=== PATIENT | male | born 1970 | race Caucasian/White ===

== ENCOUNTER 2018-05-21 00:18 | Emergency (ER) | payer SELFPAY ==
[~2018-05-21] VITALS: Ht 182.9 cm; Wt 97.7 kg
[2018-05-21 00:43] LABS: BASOPHILS # (AUTO) 0.04 x10^3/uL (0-0.1); BASOPHILS % (AUTO) 1 % (0-1); EOSINOPHILS # (AUTO) 0.41 x10^3/uL (0-0.4); EOSINOPHILS % (AUTO) 6 % (1-7); LYMPHOCYTES # (AUTO) 2.38 x10^3/uL (1-3.4); LYMPHOCYTES % (AUTO) 33 % (22-44); MD NO; MEAN CORPUSCULAR HEMOGLOBIN 34.2 pg (27.5-34.5); MEAN CORPUSCULAR HGB CONC 34.9 g/dL (33.2-36.2); MEAN CORPUSCULAR VOLUME 98.1 fL (81-97); MEAN PLATELET VOLUME 7.2 fL (7.4-10.4); MONOCYTES # (AUTO) 0.68 x10^3/uL (0.2-0.8); MONOCYTES % (AUTO) 9 % (2-9); NEUTROPHILS # (AUTO) 3.64 x10^3/uL (1.8-6.8); NEUTROPHILS % (AUTO) 51 % (42-75); PLATELET COUNT 244 x10^3/uL (130-400); RED BLOOD COUNT 4.39 x10^6/uL (4.38-5.82); RED CELL DISTRIBUTION WIDTH 13.7 % (9.4-14.8)
[2018-05-21 00:50] LABS: ALBUMIN 3.6 g/dL (3.4-5.0); ANION GAP 13 mmol/L (5-15); CALCIUM 8.1 mg/dL (8.5-10.1); CHLORIDE 108 mmol/L (98-107); CREATININE 0.94 mg/dL (0.7-1.3)
[2018-05-21 01:16] VITALS: BP 112/56
== END 2018-05-21 01:32 | disposition home or self-care (01) ==
LOC: ED 01:20
DX: F10.229 Alcohol dependence with intoxication, unspecified (principal); R20.2 Paresthesia of skin; Y90.9 Presence of alcohol in blood, level not specified
CPT/HCPCS: 36415; 70450; 80048; 80307; 82040; 85025; 93005; 99284

== ENCOUNTER 2018-11-03 23:14 | Emergency (ER) | payer MEDICAID ==
[~2018-11-03] VITALS: Ht 185.4 cm; Wt 102.0 kg
--- NOTE | 2018-11-03 23:42 | NUR ---
PT PRESENTED WITH C/O RLQ ABD PAIN X 2 MOS, DENIES N/V/D. STATED BLACK TARRY STOOLS. MONITOS APPLIED, SIDERAILS UP X2, CALL LIGHT WITHIN REACH. AWAITING ERP FOR EVAL AND ORDERS
[2018-11-04] MEDS ORDERED: ONDANSETRON ODT 4 MG PO ONE (00:30)
[2018-11-04] MEDS ORDERED: MAALOX/HYOSCYAMINE/LIDOCAINE 45 ML BTL PO ONE (00:30)
[2018-11-04] MEDS ORDERED: MAALOX/HYOSCYAMINE/LIDOCAINE 45 ML BTL ONE (00:34)
[2018-11-04] MEDS ORDERED: ONDANSETRON ODT 4 MG ONE (00:35)
--- NOTE | 2018-11-04 00:36 | NUR ---
PT MEDICATE AVANI FELICIANO
[2018-11-04 00:39] LABS: BASOPHILS # (AUTO) 0.07 x10^3/uL (0-0.1); BASOPHILS % (AUTO) 1 % (0-1); EOSINOPHILS # (AUTO) 0.39 x10^3/uL (0-0.4); EOSINOPHILS % (AUTO) 5 % (1-7); LYMPHOCYTES # (AUTO) 2.63 x10^3/uL (1-3.4); LYMPHOCYTES % (AUTO) 35 % (22-44); MD NO; MEAN CORPUSCULAR HGB CONC 34.7 g/dL (33.2-36.2); MEAN CORPUSCULAR VOLUME 98.2 fL (81-97); MEAN PLATELET VOLUME 7.3 fL (7.4-10.4); MONOCYTES # (AUTO) 0.55 x10^3/uL (0.2-0.8); MONOCYTES % (AUTO) 7 % (2-9); NEUTROPHILS # (AUTO) 3.92 x10^3/uL (1.8-6.8); NEUTROPHILS % (AUTO) 52 % (42-75); PLATELET COUNT 205 x10^3/uL (130-400); RED BLOOD COUNT 4.58 x10^6/uL (4.38-5.82); RED CELL DISTRIBUTION WIDTH 13.4 % (9.4-14.8)
--- NOTE | 2018-11-04 00:42 | NUR ---
urine sample taken to lab
[2018-11-04 00:45] LABS: ALANINE AMINOTRANSFERASE 77 U/L (12-78); ALBUMIN 3.6 g/dL (3.4-5.0); ANION GAP 13 mmol/L (5-15); CALCIUM 8.5 mg/dL (8.5-10.1); CHLORIDE 107 mmol/L (98-107); CREATININE 0.89 mg/dL (0.7-1.3)
[2018-11-04 00:47] LABS: ALKALINE PHOSPHATASE 79 U/L (45-117); BILIRUBIN,TOTAL 0.5 mg/dL (0.2-1.0); TOTAL PROTEIN 7.5 g/dL (6.4-8.2)
[2018-11-04 00:57] LABS: MICROSCOPIC NOT IND
[2018-11-04 01:03] LABS: CULTURE INDICATED? NO
[2018-11-04 01:22] VITALS: BP 105/67
== END 2018-11-04 01:41 | disposition home or self-care (01) ==
LOC: ED 11-04 00:32
DX: K29.20 Alcoholic gastritis without bleeding (principal); F10.120 Alcohol abuse with intoxication, uncomplicated
CPT/HCPCS: 36415; 80053; 80307; 81003; 83690; 85025; 99283; Q0162

== ENCOUNTER 2019-08-04 16:02 | Emergency (ER) | payer MEDICAID, OTHER ==
[~2019-08-04] VITALS: Ht 182.9 cm; Wt 102.2 kg
--- NOTE | 2019-08-04 17:13 | NUR ---
STACKER OPERATOR: PT TO ROOM FROM SUSAN RUIZ.
[2019-08-04] MEDS ORDERED: ONDANSETRON ODT 4 MG ONE (17:40)
[2019-08-04] MEDS ORDERED: ACETAMINOPHEN 500 MG TABLET PO ONE (18:00)
[2019-08-04] MEDS ORDERED: ONDANSETRON ODT 4 MG PO ONE (18:00)
[2019-08-04] MEDS ORDERED: ACETAMINOPHEN 500 MG TABLET ONE (18:02)
[2019-08-04 18:30] VITALS: BP 106/48
== END 2019-08-04 18:38 | disposition home or self-care (01) ==
LOC: ED 18:30
DX: J06.9 Acute upper respiratory infection, unspecified (principal); R11.2 Nausea with vomiting, unspecified
CPT/HCPCS: 71045; 99283; Q0162

== ENCOUNTER 2019-09-29 08:49 | Emergency (ER) | payer SELFPAY ==
[~2019-09-29] VITALS: Ht 188 cm; Wt 104.6 kg
[2019-09-29 08:53] VITALS: BP 139/62
--- NOTE | 2019-09-29 09:40 | NUR ---
PT PRESENTED TO ED D/T RIGHT HAND PAIN AND SWELLING SINCE YESTERDAY. PT DENIES ANY TRAUMA. CMS INTACT.
--- NOTE | 2019-09-29 09:52 | NUR ---
REPORT TO DANIEL SORTO.
[2019-09-29] MEDS ORDERED: KETOROLAC 30 MG/1 ML ONE (09:57)
--- NOTE | 2019-09-29 10:39 | NUR ---
TASK RN: PT DC HOME IN A STABLE CONDITION. DC INSTRUCTIONS WERE DISCUSSED WITH PT. PT VERBALIZED UNDERSTANDING. NO FURTHER QUESTIONS OR CONCERNS WERE EXPRESSED AT THAT TIME. PT AMBULATED WITH RN TO DC DESK. STEADY GAIT.
[2019-09-29] MEDS ORDERED: KETOROLAC 30 MG/1 ML IM ONE (11:00)
== END 2019-09-29 10:41 | disposition home or self-care (01) ==
LOC: ED 09:48
DX: S60.221A Contusion of right hand, initial encounter (principal); L03.113 Cellulitis of right upper limb; X58.XXXA Exposure to other specified factors, initial encounter; Y92.69 Other specified industrial and construction area as the place of occurrence of the external cause; Y93.89 Activity, other specified; Y99.0 Civilian activity done for income or pay
CPT/HCPCS: 73130; 96372; 99283; J1885

== ENCOUNTER 2019-11-14 07:09 | Emergency (ER) | payer MEDICAID ==
[~2019-11-14] VITALS: Ht 182.9 cm; Wt 105.4 kg
--- NOTE | 2019-11-14 07:22 | NUR ---
PT PRESENTS TO ED WITH RUQ ABDOMINAL PAIN FOR 5 DAYS. PT DENIES N/V/D. PAIN SUBSIDES TO 2/10 WHEN LAYING OR RECLINING ON BACK. PT TENDER TO PALPATION. PT DENIES PMH. REPORTS AVERAGE OF 4 ETOH DRINKS DAILY. DENIES ABDOMINAL SURGERIES. NAD NOTED AT THIS TIME. SIDE RAIL UP, CALL LIGHT IN REACH. AWAITING PROVIDER ASSESSMENT.
[2019-11-14] MEDS ORDERED: MORPHINE SULFATE 4 MG/ML, 1ML ONE (07:28)
[2019-11-14] MEDS ORDERED: ONDANSETRON 2MG/ML, 2ML ONE ×2 (07:28→12:00)
[2019-11-14] MEDS ORDERED: MORPHINE SULFATE 4 MG/ML, 1ML IVPush PRN (07:30)
[2019-11-14] MEDS ORDERED: SODIUM CHLORIDE FLUSH 10ML SYR IVF ONE (07:30)
[2019-11-14] MEDS ORDERED: KETOROLAC 30 MG/1 ML IVPush ONE (07:30)
[2019-11-14] MEDS ORDERED: KETOROLAC 30 MG/1 ML ONE (07:39)
--- NOTE | 2019-11-14 07:47 | NUR ---
IV START, RAILROAD [employer] PER EMAR, LABS DRAWN AND SENT. CXR COMPLETED. MONITORING IN PLACE. NAD NOTED IN PT AT THIS TIME. AWAITING RESULTS.
[2019-11-14 07:48] LABS: MEAN CORPUSCULAR HEMOGLOBIN 36.9 pg (27.5-34.5); MEAN CORPUSCULAR HGB CONC 33.5 g/dL (33.2-36.2); MEAN CORPUSCULAR VOLUME 110.4 fL (81-97); PLATELET COUNT 135 x10^3/uL (130-400); RED BLOOD COUNT 3.38 x10^6/uL (4.38-5.82); RED CELL DISTRIBUTION WIDTH 16.2 % (9.4-14.8)
[2019-11-14 08:00] LABS: ALANINE AMINOTRANSFERASE 43 U/L (12-78); ALBUMIN 2.4 g/dL (3.4-5.0); ANION GAP 9 mmol/L (5-15); CHLORIDE 105 mmol/L (98-107); CREATININE 0.77 mg/dL (0.7-1.3); INTERNATIONAL NORMALIZED RATIO 1.54 (0.93-1.1); PROTHROMBIN TIME 16.4 Seconds (9.6-11.5)
[2019-11-14 08:02] LABS: ALKALINE PHOSPHATASE 143 U/L (45-117); TOTAL PROTEIN 6.9 g/dL (6.4-8.2)
[2019-11-14 08:30] LABS: BASOPHILS # (AUTO) 0.02 x10^3/uL (0-0.1); BASOPHILS % (AUTO) 0 % (0-1); EOSINOPHILS # (AUTO) 0.85 x10^3/uL (0-0.4); EOSINOPHILS % (AUTO) 15 % (1-7); LYMPHOCYTES # (AUTO) 0.84 x10^3/uL (1-3.4); LYMPHOCYTES % (AUTO) 14 % (22-44); MD SCAN; MONOCYTES # (AUTO) 0.54 x10^3/uL (0.2-0.8); MONOCYTES % (AUTO) 9 % (2-9); NEUTROPHILS # (AUTO) 3.62 x10^3/uL (1.8-6.8); NEUTROPHILS % (AUTO) 62 % (42-75)
--- NOTE | 2019-11-14 08:38 | NUR ---
PT C/O INCREASED ABDOMINAL PAIN FOLLOWING US EXAM. PT MEDICATED PER EMAR. SITTING RECLINED IN BED. NAD NOTED AT THIS TIME. AT BEDSIDE. RESPIRATIONS EVEN AND UNLABORED ON RA. SIDE RAIL UP, CALL LIGHT IN REACH.
[2019-11-14 08:51] LABS: BILIRUBIN, DIRECT 2.1 mg/dL (0.1-0.2)
[2019-11-14 08:53] LABS: BILIRUBIN,INDIRECT 4.5 mg/dL (0.0-2.0); BILIRUBIN,TOTAL 6.6 mg/dL (0.2-1.0)
--- NOTE | 2019-11-14 09:10 | NUR ---
HOB TO LEVEL OF COMFORT, AT BEDSIDE. RESPIRATIONS EVEN AND UNLABORED ON RA. NAD NOTED AT THIS TIME. MEDICATIONS PER EMAR. SIDE RAILS UP, CALL LIGHT IN REACH.
[2019-11-14] MEDS ORDERED: LIDOCAINE 1%, 10ML ONE (09:15)
[2019-11-14] MEDS ORDERED: ONDANSETRON 2MG/ML, 2ML IVPush ONE (10:00)
--- NOTE | 2019-11-14 10:11 | NUR ---
PT REMAINS IN IR.
--- NOTE | 2019-11-14 10:52 | NUR ---
PT BACK FROM IR. SITTING UP IN BED, RESPIRATIONS EVEN AND UNLABORED ON RA. PT GIVEN PO WATER. NAD NOTED AT THIS TIME. AT BEDSIDE. SIDE RAILS UP, CALL LIGHT IN REACH.
--- NOTE | 2019-11-14 12:17 | NUR ---
Pt vomited, medicated per emar for nausea. Sitting reclined in bed, NAD noted at this time. Pt makes jokes. at bedside. Side rails up, call light in reach.
--- NOTE | 2019-11-14 13:11 | NUR ---
PT SITING RECLINED IN BED, ASLEEP. NAD NOTED AT THIS TIME. RESPIRATIONS EVEN AND UNLABORED ON RA. SIDE RAILS UP, CALL LIGHT IN REACH. AT BEDSIDE. AWAITING PARACENTESIS LAB RESULTS.
[2019-11-14 13:28] VITALS: BP 103/52
== END 2019-11-14 13:30 | disposition home or self-care (01) ==
LOC: ED 07:34
DX: K70.31 Alcoholic cirrhosis of liver with ascites (principal); E80.6 Other disorders of bilirubin metabolism; R94.31 Abnormal electrocardiogram [ECG] [EKG]; R07.9 Chest pain, unspecified
CPT/HCPCS: 36415; 49083; 71045; 76700; 80053; 80074; 82042; 82247; 82248; 82945; 83615; 83690; 85025; 85610; 87070; 87205; 88112; 89051; 93005; 96374; 96375; 99285; J1885; J2270; J2405; J3490

== ENCOUNTER 2019-11-25 07:17 | Emergency (ER) | payer MEDICAID ==
[~2019-11-25] VITALS: Ht 182.9 cm; Wt 103.1 kg
[~2019-11-25 07:17] MED LIST: ASPI-496 PO; CIPR500T3 PO; FURO40TA6 PO; SPIR25TA PO
--- NOTE | 2019-11-25 07:26 | NUR ---
PT AMBULATED BACK TO ROOM W/ A STEADY GAIT.
--- NOTE | 2019-11-25 07:34 | NUR ---
THIS IS A 49 YO M W/ C/O RT SIDED ABD PAIN SINCE THURSDAY. PT REPORTS HE WAS DC FROM THIS FACILITY LAST THURSDAY FOR SPONTANEOUS BACTERIAL PERITONITIS, FOLLOWED UP W/ GI ON THURSDAY. PT HAS HX OF LIVER FAILURE AND ALCOHOLIC HEPATITIS, 2 WEEKS SINCE LAST DRINK. PT REPORTS NAUSEA, DENIES VOMITING/CP/SOB. PT RESTING ON GURNEY W/ CALL LIGHT IN REACH AND FAMILY AT BEDSIDE, KIRAN UNGER. AWAITING ED EVAL.
--- NOTE | 2019-11-25 08:22 | NUR ---
LAB IN ROOM.
[2019-11-25 08:30] LABS: MEAN CORPUSCULAR HGB CONC 33.3 g/dL (33.2-36.2); MEAN CORPUSCULAR VOLUME 110.9 fL (81-97); MEAN PLATELET VOLUME 6.9 fL (7.4-10.4); PLATELET COUNT 137 x10^3/uL (130-400); RED BLOOD COUNT 3.43 x10^6/uL (4.38-5.82); RED CELL DISTRIBUTION WIDTH 15.3 % (9.4-14.8)
[2019-11-25] MEDS ORDERED: LIDOCAINE 1%, 10ML ONE (08:30)
[2019-11-25] MEDS ORDERED: LIDOCAINE-MPF 1%, 5ML ONE (08:30)
[2019-11-25 08:40] LABS: ALANINE AMINOTRANSFERASE 43 U/L (12-78); ALBUMIN 2.4 g/dL (3.4-5.0); ANION GAP 8 mmol/L (5-15); CALCIUM 8.2 mg/dL (8.5-10.1); CHLORIDE 102 mmol/L (98-107); CREATININE 0.83 mg/dL (0.7-1.3)
--- NOTE | 2019-11-25 08:40 | NUR ---
PT RESTING ON GURNEY W/ CALL LIGHT IN REACH, RESP EVEN AND UNLABORED, NADN. AWAITING PARACENTESIS.
[2019-11-25 08:42] LABS: ALKALINE PHOSPHATASE 150 U/L (45-117); BILIRUBIN,TOTAL 4.4 mg/dL (0.2-1.0); TOTAL PROTEIN 6.7 g/dL (6.4-8.2)
[2019-11-25 08:51] LABS: BASOPHILS # (AUTO) 0.02 x10^3/uL (0-0.1); BASOPHILS % (AUTO) 0 % (0-1); EOSINOPHILS # (AUTO) 1.44 x10^3/uL (0-0.4); EOSINOPHILS % (AUTO) 22 % (1-7); LYMPHOCYTES # (AUTO) 0.94 x10^3/uL (1-3.4); LYMPHOCYTES % (AUTO) 14 % (22-44); MD SCAN; MONOCYTES # (AUTO) 0.76 x10^3/uL (0.2-0.8); MONOCYTES % (AUTO) 11 % (2-9); NEUTROPHILS # (AUTO) 3.51 x10^3/uL (1.8-6.8); NEUTROPHILS % (AUTO) 53 % (42-75)
--- NOTE | 2019-11-25 08:52 | NUR ---
PT TO IR.
[2019-11-25 10:08] VITALS: BP 109/55
--- NOTE | 2019-11-25 10:48 | NUR ---
Patient given discharge instructions and they have confirmed that they understand the instructions. Patient ambulatory with steady gait.
== END 2019-11-25 10:49 | disposition home or self-care (01) ==
LOC: ED 09:35
DX: K70.31 Alcoholic cirrhosis of liver with ascites (principal); Z86.73 Personal history of transient ischemic attack (TIA), and cerebral infarction without residual deficits
CPT/HCPCS: 36415; 49083; 80053; 85025; 99285; J3490

== ENCOUNTER 2019-12-03 07:03 | Emergency (ER) | payer MEDICAID ==
[~2019-12-03] VITALS: Ht 182.9 cm; Wt 103.6 kg
--- NOTE | 2019-12-03 07:34 | NUR ---
Pt brought back from triage with chief complaint of abd pain and "liver not working". Increasing ascites for 3 weeks, paracentesis about 1 week ago.
--- NOTE | 2019-12-03 08:30 | NUR ---
Pt resting in bed, call light in reach. Aware of POC
--- NOTE | 2019-12-03 09:30 | NUR ---
PT to imaging
[2019-12-03] MEDS ORDERED: LIDOCAINE 1%, 10ML ONE (09:42)
--- NOTE | 2019-12-03 10:44 | NUR ---
pt back resting in bed, parancentesis completed.
[2019-12-03 10:45] VITALS: BP 111/51
--- NOTE | 2019-12-03 11:39 | NUR ---
DC INSTRUCTIONS REVIEWED
== END 2019-12-03 11:41 | disposition home or self-care (01) ==
LOC: ED 08:49
DX: K70.11 Alcoholic hepatitis with ascites (principal); R10.84 Generalized abdominal pain; Z86.73 Personal history of transient ischemic attack (TIA), and cerebral infarction without residual deficits
CPT/HCPCS: 49083; 99285; J3490

== ENCOUNTER 2019-12-15 07:31 | Emergency (ER) | payer MEDICAID ==
[~2019-12-15] VITALS: Ht 182.9 cm; Wt 101.2 kg
[2019-12-15 08:44] VITALS: BP 129/65
--- NOTE | 2019-12-15 08:45 | NUR ---
BREAK RN: PT RESTING ON DAYANARA. NADN. UNGER. PT AWARE OF POC FOR PARACENTESIS.
[2019-12-15] MEDS ORDERED: LIDOCAINE 1%, 10ML ONE (08:59)
--- NOTE | 2019-12-15 10:02 | NUR ---
PT IN IR
--- NOTE | 2019-12-15 10:28 | NUR ---
Patient/Caregiver given discharge instructions and they have confirmed that they understand the instructions. Patient ambulatory with steady gait.
== END 2019-12-15 10:31 | disposition home or self-care (01) ==
LOC: ED 08:00
DX: K70.31 Alcoholic cirrhosis of liver with ascites (principal); R10.84 Generalized abdominal pain; R11.0 Nausea; R94.31 Abnormal electrocardiogram [ECG] [EKG]; E80.6 Other disorders of bilirubin metabolism; Z86.73 Personal history of transient ischemic attack (TIA), and cerebral infarction without residual deficits
CPT/HCPCS: 49083; 93005; 99285; J3490

== ENCOUNTER → 2019-12-28 | Outpatient (CLI) | payer MEDICAID ==
[~2019-12-28] MED LIST changes: +LIDOCAINE 1%, 10ML ONE
== END | disposition home or self-care (01) ==
LOC: RAD 11:39
PROVIDERS: ATTEND Nurse Practitioner
DX: K70.31 Alcoholic cirrhosis of liver with ascites (principal); Z79.899 Other long term (current) drug therapy; Z98.890 Other specified postprocedural states; Z91.013 Allergy to seafood; Z80.0 Family history of malignant neoplasm of digestive organs; Z82.3 Family history of stroke
CPT/HCPCS: 49083; J3490

== ENCOUNTER → 2020-01-20 | Outpatient (CLI) | payer MEDICAID ==
[~2020-01-20] MED LIST changes: -LIDOCAINE 1%, 10ML ONE; +OMNIPAQUE 350 MG/ML, 100ML BOTTLE ONE
== END | disposition home or self-care (01) ==
LOC: CFH 13:18
PROVIDERS: ATTEND Nurse Practitioner
DX: K70.31 Alcoholic cirrhosis of liver with ascites (principal); I85.00 Esophageal varices without bleeding
CPT/HCPCS: 74170; Q9967

== ENCOUNTER → 2020-03-13 | Outpatient (CLI) | payer MEDICAID ==
[~2020-03-13] MED LIST changes: +LIDOCAINE 1%, 10ML ONE; -OMNIPAQUE 350 MG/ML, 100ML BOTTLE ONE
== END | disposition home or self-care (01) ==
LOC: RAD 08:38
PROVIDERS: ATTEND Nurse Practitioner
DX: K74.60 Unspecified cirrhosis of liver (principal)
CPT/HCPCS: 49083

== ENCOUNTER 2020-08-27 10:02 | Inpatient (IN) | payer MEDICAID ==
[2020-08-27] VITALS (9 sets, daily range): BP systolic 105–129; BP diastolic 54–69
[~2020-08-27] VITALS: Ht 182.9 cm; Wt 102.2 kg
[~2020-08-27 10:02] MED LIST changes: -CIPR500T3 PO; +CIPR500T4 PO; -LIDOCAINE 1%, 10ML ONE
[2020-08-27] MEDS ORDERED: ONDA4TAB7 PO (10:24)
[2020-08-27] MEDS ORDERED: HYDR-2995 PO (10:24)
[2020-08-27] MEDS ORDERED: RIFA550T4 PO (10:24)
[2020-08-27] MEDS ORDERED: LACT10SO28 PO (10:24)
[2020-08-27] MEDS ORDERED: PANTOPRAZOLE 80 MG in SODIUM CHLORIDE 0.9% 50 ML IVPB ONE (10:30)
[2020-08-27] MEDS ORDERED: PANTOPRAZOLE 80 MG in SODIUM CHLORIDE 0.9% 100 ML IV SCH (10:30)
[2020-08-27] MEDS ORDERED: OCTREOTIDE 500 MCG in SODIUM CHLORIDE 0.9% 99 ML IV PRN (10:30)
[2020-08-27] MEDS ORDERED: OCTREOTIDE 100MCG/ML, 1ML (0.1MG/ML) IV ONE (10:30)
[2020-08-27] MEDS ORDERED: OCTREOTIDE 100MCG/ML, 1ML (0.1MG/ML) ONE (10:48)
[2020-08-27 11:07] LABS: BASOPHILS % (AUTO) 1 % (0-1); EOSINOPHILS % (AUTO) 9 % (1-7); LYMPHOCYTES % (AUTO) 16 % (22-44); MEAN CORPUSCULAR HEMOGLOBIN 38.5 pg (27.5-34.5); MEAN CORPUSCULAR HGB CONC 35.1 g/dL (33.2-36.2); MEAN PLATELET VOLUME 6.7 fL (7.4-10.4); MONOCYTES % (AUTO) 6 % (2-9); NEUTROPHILS % (AUTO) 68 % (42-75); PLATELET COUNT 122 x10^3/uL (130-400); RED BLOOD COUNT 2.89 x10^6/uL (4.38-5.82); RED CELL DISTRIBUTION WIDTH 14.5 % (9.4-14.8)
[2020-08-27 11:10] LABS: ANION GAP 9 mmol/L (5-15); CALCIUM 9.4 mg/dL (8.5-10.1); CHLORIDE 105 mmol/L (98-107)
[2020-08-27 11:15] LABS: ALANINE AMINOTRANSFERASE 29 U/L (12-78); ALKALINE PHOSPHATASE 147 U/L (45-117); BILIRUBIN,TOTAL 7.5 mg/dL (0.2-1.0); CREATININE 1.01 mg/dL (0.7-1.3); TOTAL PROTEIN 6.7 g/dL (6.4-8.2)
[2020-08-27 11:18] LABS: PROTHROMBIN TIME 17.2 Seconds (9.6-11.5)
[2020-08-27 11:19] LABS: INTERNATIONAL NORMALIZED RATIO 1.62 (0.93-1.1)
[2020-08-27 11:54] LABS: MD MORPH REVIEW ONLY
[2020-08-27 11:55] LABS: <PLATELET ESTIMATE> DECREASED; <PLT MORPHOLOGY> NORMAL PLT MORPH
--- NOTE | 2020-08-27 11:56 | NUR ---
Admitting MD at bedside.
--- NOTE | 2020-08-27 12:10 | NUR ---
Pt stopped drinking in October of 2019 when he was told he has liver failure. Pt noted a 5-7 pound weight gain in the last week. noted increasing jaundice this AM. Pt states he had an endoscopy in the past when they banned him. Presents A&Ox4, connected to all monitors. at bedside, KIRAN.
[2020-08-27] MEDS ORDERED: PROMETHAZINE 25 MG/ML, 1ML IM PRN (12:30)
[2020-08-27] MEDS ORDERED: ONDANSETRON 2MG/ML, 2ML IVPush PRN (12:30)
[2020-08-27] MEDS ORDERED: METOCLOPRAMIDE 5 MG/ML, 2ML IVPush PRN (12:30)
[2020-08-27] MEDS: morphine SULFATE 10 MG/ML, 1ML IVPush PRN ×2 (14:02→19:55)
[2020-08-27] MEDS: CEFTRIAXONE PMX 2GM/50ML 50 ML IVPB SCH (17:38)
[2020-08-27] MEDS: PHYTONADIONE 10 MG/ML, 1ML IM SCH (17:39)
[2020-08-27] MEDS: RIFAXIMIN 550 MG TABLET PO SCH (19:54)
[2020-08-27] MEDS: PANTOPRAZOLE 80 MG in SODIUM CHLORIDE 0.9% 100 ML IV SCH (21:53)
[2020-08-27] MEDS: OCTREOTIDE 500 MCG in SODIUM CHLORIDE 0.9% 99 ML IV PRN (21:55)
[2020-08-28] MEDS: morphine SULFATE 10 MG/ML, 1ML IVPush PRN ×3 (00:39→20:04)
[2020-08-28 01:13] VITALS: BP 107/68
[2020-08-28 05:14] LABS: ANION GAP 7 mmol/L (5-15); CALCIUM 8.3 mg/dL (8.5-10.1); CHLORIDE 103 mmol/L (98-107); CREATININE 0.99 mg/dL (0.7-1.3)
[2020-08-28 06:48] VITALS: BP 102/60
[2020-08-28] MEDS: PANTOPRAZOLE 80 MG in SODIUM CHLORIDE 0.9% 100 ML IV SCH (07:14)
[2020-08-28] MEDS: OCTREOTIDE 500 MCG in SODIUM CHLORIDE 0.9% 99 ML IV PRN (07:15)
[2020-08-28] MEDS: LACTULOSE 10 GM/15 ML UDC PO SCH ×3 (09:00→20:05)
[2020-08-28] MEDS: PHYTONADIONE 10 MG/ML, 1ML IM SCH (09:03)
[2020-08-28] MEDS: SPIRONOLACTONE 25 MG TABLET PO SCH (09:04)
[2020-08-28] MEDS: hydrOXyzine 10MG TABLET PO SCH (09:04)
[2020-08-28] MEDS: RIFAXIMIN 550 MG TABLET PO SCH ×2 (09:04→20:04)
[2020-08-28] MEDS: FUROSEMIDE 40 MG TABLET PO SCH (09:04)
[2020-08-28] MEDS ORDERED: ONDANSETRON 2MG/ML, 2ML ONE (10:55)
[2020-08-28] MEDS ORDERED: METOCLOPRAMIDE 5 MG/ML, 2ML ONE (10:55)
[2020-08-28] MEDS ORDERED: PROPOFOL 10 MG/ML, 20ML ONE ×2 (11:12)
[2020-08-28] MEDS ORDERED: ONDANSETRON 4 MG TABLET PO PRN (12:30)
[2020-08-28] MEDS: SUCRALFATE 1 GM/10 ML UDC PO SCH ×3 (13:06→20:05)
[2020-08-28] MEDS: CEFTRIAXONE PMX 2GM/50ML 50 ML IVPB SCH (13:06)
[2020-08-28 13:12] VITALS: BP 120/63
[2020-08-28] MEDS ORDERED: SUCR1TAB33 PO (14:26)
[2020-08-28] MEDS ORDERED: CARV3.1212 PO (14:26)
[2020-08-28] MEDS ORDERED: OMEP-110 PO ×3 (14:26→14:29)
[2020-08-28] MEDS: CARVEDILOL 3.125 MG TABLET PO SCH (18:09)
[2020-08-28 20:10] VITALS: BP 120/71
[2020-08-29 01:42] VITALS: BP 129/68
[2020-08-29] MEDS: OMEPRAZOLE 20 MG CAPSULE.DR PO SCH (05:22)
[2020-08-29] MEDS: CARVEDILOL 3.125 MG TABLET PO SCH ×2 (05:23→17:53)
[2020-08-29] MEDS: OCTREOTIDE 500 MCG in SODIUM CHLORIDE 0.9% 99 ML IV PRN ×2 (06:21→19:12)
[2020-08-29 06:32] VITALS: BP 123/73
[2020-08-29] MEDS: SUCRALFATE 1 GM/10 ML UDC PO SCH ×4 (07:00→20:16)
[2020-08-29] MEDS: RIFAXIMIN 550 MG TABLET PO SCH ×2 (09:29→20:17)
[2020-08-29] MEDS: LACTULOSE 10 GM/15 ML UDC PO SCH ×3 (09:30→20:17)
[2020-08-29] MEDS: FUROSEMIDE 40 MG TABLET PO SCH (09:30)
[2020-08-29] MEDS: SPIRONOLACTONE 25 MG TABLET PO SCH (09:30)
[2020-08-29] MEDS: hydrOXyzine 10MG TABLET PO SCH (09:30)
[2020-08-29] MEDS: PHYTONADIONE 10 MG/ML, 1ML IM SCH (09:44)
[2020-08-29 12:03] VITALS: BP 107/58
[2020-08-29] MEDS: CEFTRIAXONE PMX 2GM/50ML 50 ML IVPB SCH (13:06)
[2020-08-29] MEDS: morphine SULFATE 10 MG/ML, 1ML IVPush PRN (17:56)
[2020-08-29 19:40] VITALS: BP 112/63
[2020-08-30 02:00] VITALS: BP 119/67
[2020-08-30] MEDS: OMEPRAZOLE 20 MG CAPSULE.DR PO SCH (05:24)
[2020-08-30] MEDS: CARVEDILOL 3.125 MG TABLET PO SCH (05:24)
[2020-08-30 05:48] LABS: BASOPHILS % (AUTO) 2 % (0-1); EOSINOPHILS % (AUTO) 12 % (1-7); LYMPHOCYTES % (AUTO) 23 % (22-44); MEAN CORPUSCULAR HEMOGLOBIN 38.5 pg (27.5-34.5); MEAN CORPUSCULAR HGB CONC 34.6 g/dL (33.2-36.2); MEAN PLATELET VOLUME 6.6 fL (7.4-10.4); MONOCYTES % (AUTO) 9 % (2-9); NEUTROPHILS % (AUTO) 55 % (42-75); PLATELET COUNT 92 x10^3/uL (130-400); RED BLOOD COUNT 2.46 x10^6/uL (4.38-5.82); RED CELL DISTRIBUTION WIDTH 14.3 % (9.4-14.8)
[2020-08-30 05:55] LABS: CHLORIDE 101 mmol/L (98-107)
[2020-08-30 05:57] LABS: MD NO
[2020-08-30 06:09] LABS: ALANINE AMINOTRANSFERASE 27 U/L (12-78); ALBUMIN 2.7 g/dL (3.4-5.0); ALKALINE PHOSPHATASE 103 U/L (45-117); ANION GAP 8 mmol/L (5-15); BILIRUBIN,TOTAL 5.9 mg/dL (0.2-1.0); CALCIUM 8.9 mg/dL (8.5-10.1); TOTAL PROTEIN 6.3 g/dL (6.4-8.2)
[2020-08-30] MEDS: RIFAXIMIN 550 MG TABLET PO SCH (08:17)
[2020-08-30] MEDS: LACTULOSE 10 GM/15 ML UDC PO SCH (08:17)
[2020-08-30] MEDS: SPIRONOLACTONE 25 MG TABLET PO SCH (08:17)
[2020-08-30] MEDS: hydrOXyzine 10MG TABLET PO SCH (08:17)
[2020-08-30] MEDS: SUCRALFATE 1 GM/10 ML UDC PO SCH ×2 (08:17→11:50)
[2020-08-30 08:18] VITALS: BP 104/57
[2020-08-30] MEDS: FUROSEMIDE 40 MG TABLET PO SCH (08:18)
[2020-08-30] MEDS ORDERED: FLU VACC QS2020-21(6MOS UP)/PF 60MCG/0.5 ML SYR IM-VACC ONE (11:00)
== END 2020-08-30 12:08 | disposition home or self-care (01) | DRG 368 ==
LOC: ED 10:28 → 4WST 11:37 → ED 11:37 → SUATTDRO 12:06 → 4WST 12:50
PROVIDERS: ADMIT Hospitalist; ATTEND Internal Medicine
PROC: 30233K1 Transfusion of Nonautologous Frozen Plasma into Peripheral Vein, Percutaneous Approach (ICD-10-PCS; principal; 2020-08-27)
PROC: 06L38CZ Occlusion of Esophageal Vein with Extraluminal Device, Via Natural or Artificial Opening Endoscopic (ICD-10-PCS; 2020-08-28)
PROC: 0DB68ZX Excision of Stomach, Via Natural or Artificial Opening Endoscopic, Diagnostic (ICD-10-PCS; 2020-08-28)
DX: I85.01 Esophageal varices with bleeding (principal); U07.1 COVID-19; D62 Acute posthemorrhagic anemia; D68.9 Coagulation defect, unspecified; K76.6 Portal hypertension; E87.1 Hypo-osmolality and hyponatremia; D69.6 Thrombocytopenia, unspecified; D75.89 Other specified diseases of blood and blood-forming organs; E66.9 Obesity, unspecified; Z68.30 Body mass index [BMI] 30.0-30.9, adult; F17.220 Nicotine dependence, chewing tobacco, uncomplicated; K31.89 Other diseases of stomach and duodenum; K70.30 Alcoholic cirrhosis of liver without ascites; E88.09 Other disorders of plasma-protein metabolism, not elsewhere classified; Z86.73 Personal history of transient ischemic attack (TIA), and cerebral infarction without residual deficits; Z91.013 Allergy to seafood
CPT/HCPCS: 36415; 76700; 80048; 80053; 85018; 85025; 85610; 85730; 86850; 86900; 88305; 90686; 96372; 99291; G0378; J0696; J2354; J2405; J2704; J3430; C9113; J2270; J2765; P9017; U0003

== ENCOUNTER 2020-09-01 23:10 | Inpatient (IN) | payer MEDICAID ==
[~2020-09-01] VITALS: Ht 182.9 cm; Wt 101.6 kg
[~2020-09-01 23:10] MED LIST changes: +CARV3.1212 PO; +HYDR-2995 PO; +LACT10SO28 PO; +OMEP-110 PO; +ONDA4TAB7 PO; +RIFA550T4 PO; +SUCR1TAB33 PO
[2020-09-01] MEDS ORDERED: MORPHINE SULFATE 4 MG/ML, 1ML IVPush PRN (23:30)
[2020-09-01] MEDS ORDERED: ONDANSETRON 2MG/ML, 2ML IVPush ONE (23:30)
[2020-09-01] MEDS ORDERED: PANTOPRAZOLE 80 MG in SODIUM CHLORIDE 0.9% 50 ML IVPB ONE (23:30)
[2020-09-01] MEDS ORDERED: PANTOPRAZOLE 40 MG IV IVPush ONE (23:30)
[2020-09-01] MEDS ORDERED: OCTREOTIDE 100MCG/ML, 1ML (0.1MG/ML) IV ONE (23:30)
[2020-09-01] MEDS ORDERED: OCTREOTIDE 500 MCG in SODIUM CHLORIDE 0.9% 99 ML IV PRN (23:30)
[2020-09-01] MEDS: PLEASE ENTER HEIGHT AND WEIGHT MC SCH ×2 (23:45→23:49)
[2020-09-01 23:48] LABS: BASOPHILS % (AUTO) 1 % (0-1); EOSINOPHILS % (AUTO) 11 % (1-7); LYMPHOCYTES % (AUTO) 18 % (22-44); MEAN CORPUSCULAR HEMOGLOBIN 38.5 pg (27.5-34.5); MEAN CORPUSCULAR HGB CONC 34.9 g/dL (33.2-36.2); MEAN PLATELET VOLUME 6.3 fL (7.4-10.4); MONOCYTES % (AUTO) 8 % (2-9); NEUTROPHILS % (AUTO) 62 % (42-75); PLATELET COUNT 104 x10^3/uL (130-400); RED BLOOD COUNT 2.66 x10^6/uL (4.38-5.82); RED CELL DISTRIBUTION WIDTH 14.2 % (9.4-14.8)
[2020-09-01 23:55] LABS: MD NO
[2020-09-01 23:58] LABS: ALANINE AMINOTRANSFERASE 34 U/L (12-78); ALBUMIN 2.8 g/dL (3.4-5.0); ANION GAP 7 mmol/L (5-15); CALCIUM 8.5 mg/dL (8.5-10.1); CHLORIDE 100 mmol/L (98-107)
[2020-09-02] LABS: ALKALINE PHOSPHATASE 142 U/L (45-117); TOTAL PROTEIN 6.5 g/dL (6.4-8.2)
[2020-09-02] MEDS ORDERED: OCTREOTIDE 100MCG/ML, 1ML (0.1MG/ML) ONE (00:27)
[2020-09-02] MEDS ORDERED: ONDANSETRON 2MG/ML, 2ML ONE (00:28)
[2020-09-02] MEDS: PANTOPRAZOLE 80 MG in SODIUM CHLORIDE 0.9% 100 ML IV SCH ×2 (00:33→10:11)
[2020-09-02] MEDS ORDERED: MORPHINE SULFATE 4 MG/ML, 1ML ONE (00:44)
--- NOTE | 2020-09-02 01:39 | NUR ---
PT RESTING IN BED PT VSS PT ON MONITOR. PT AT BEDSIDE. PT MEDICATED PER AUG.
[2020-09-02] MEDS ORDERED: ONDANSETRON 2MG/ML, 2ML IVPush PRN (02:00)
[2020-09-02] MEDS ORDERED: LABETALOL 5MG/ML, 20ML IVPush PRN (02:00)
[2020-09-02 02:17] LABS: INTERNATIONAL NORMALIZED RATIO 1.51 (0.93-1.1)
[2020-09-02 03:24] VITALS: BP 109/53
[2020-09-02] MEDS: CEFTRIAXONE PMX 1GM/50ML 50 ML IV SCH (03:46)
[2020-09-02] MEDS: PROMETHAZINE 25 MG/ML, 1ML IM PRN ×3 (04:52→21:49)
[2020-09-02 04:57] VITALS: BP 108/53
[2020-09-02] MEDS: CARVEDILOL 3.125 MG TABLET PO SCH ×2 (05:00→17:24)
[2020-09-02] MEDS: SUCRALFATE 1 GM TABLET PO SCH ×4 (05:00→21:49)
[2020-09-02 06:36] VITALS: BP 106/65
[2020-09-02] MEDS: SPIRONOLACTONE 25 MG TABLET PO SCH (10:09)
[2020-09-02] MEDS: LACTULOSE 10 GM/15 ML UDC PO SCH ×3 (10:09→21:49)
[2020-09-02] MEDS: hydrOXyzine 10MG TABLET PO SCH (10:09)
[2020-09-02] MEDS: RIFAXIMIN 550 MG TABLET PO SCH ×2 (10:09→21:49)
[2020-09-02] MEDS: FUROSEMIDE 40 MG TABLET PO SCH (10:09)
[2020-09-02] MEDS: OXYcodone IR 5MG TABLET PO PRN ×2 (10:29→14:51)
[2020-09-02 12:26] VITALS: BP 106/65
[2020-09-02] MEDS: PANTOPRAZOLE 20MG TABLET PO SCH (16:29)
[2020-09-02 20:01] VITALS: BP 101/61
[2020-09-03 00:55] VITALS: BP 99/61
[2020-09-03] MEDS: CEFTRIAXONE PMX 1GM/50ML 50 ML IV SCH (03:39)
[2020-09-03 05:45] LABS: BASOPHILS % (AUTO) 1 % (0-1); EOSINOPHILS % (AUTO) 13 % (1-7); LYMPHOCYTES % (AUTO) 28 % (22-44); MEAN CORPUSCULAR HGB CONC 35.2 g/dL (33.2-36.2); MEAN PLATELET VOLUME 6.7 fL (7.4-10.4); MONOCYTES % (AUTO) 8 % (2-9); NEUTROPHILS % (AUTO) 50 % (42-75); PLATELET COUNT 93 x10^3/uL (130-400); RED BLOOD COUNT 2.43 x10^6/uL (4.38-5.82); RED CELL DISTRIBUTION WIDTH 14.2 % (9.4-14.8)
[2020-09-03 05:51] LABS: ALBUMIN 2.6 g/dL (3.4-5.0); ANION GAP 9 mmol/L (5-15); CALCIUM 8.2 mg/dL (8.5-10.1); CHLORIDE 101 mmol/L (98-107)
[2020-09-03 05:55] LABS: ALANINE AMINOTRANSFERASE 32 U/L (12-78); ALKALINE PHOSPHATASE 92 U/L (45-117); BILIRUBIN,TOTAL 6.5 mg/dL (0.2-1.0); CREATININE 1.11 mg/dL (0.7-1.3); TOTAL PROTEIN 6.1 g/dL (6.4-8.2)
[2020-09-03] MEDS: SUCRALFATE 1 GM TABLET PO SCH ×2 (06:00→12:18)
[2020-09-03 06:17] VITALS: BP 109/55
[2020-09-03 06:19] LABS: MD SCAN
[2020-09-03] MEDS: CARVEDILOL 3.125 MG TABLET PO SCH (06:20)
[2020-09-03] MEDS: RIFAXIMIN 550 MG TABLET PO SCH (08:08)
[2020-09-03] MEDS: SPIRONOLACTONE 25 MG TABLET PO SCH (08:08)
[2020-09-03] MEDS: PANTOPRAZOLE 20MG TABLET PO SCH (08:08)
[2020-09-03] MEDS: FUROSEMIDE 40 MG TABLET PO SCH (08:08)
[2020-09-03] MEDS: LACTULOSE 10 GM/15 ML UDC PO SCH (08:09)
[2020-09-03] MEDS: hydrOXyzine 10MG TABLET PO SCH (08:09)
[2020-09-03 12:22] VITALS: BP 104/50
== END 2020-09-03 16:08 | disposition home or self-care (01) | DRG 378 ==
LOC: ED 09-02 00:01 → EDIP 09-02 01:55 → 3N 09-02 03:21
PROVIDERS: ADMIT Internal Medicine; ATTEND Internal Medicine
DX: K92.2 Gastrointestinal hemorrhage, unspecified (principal); D62 Acute posthemorrhagic anemia; D53.9 Nutritional anemia, unspecified; F10.21 Alcohol dependence, in remission; Z91.013 Allergy to seafood; Z79.899 Other long term (current) drug therapy; Z76.82 Awaiting organ transplant status; K70.30 Alcoholic cirrhosis of liver without ascites; Z86.73 Personal history of transient ischemic attack (TIA), and cerebral infarction without residual deficits; Z80.0 Family history of malignant neoplasm of digestive organs; Z82.0 Family history of epilepsy and other diseases of the nervous system
CPT/HCPCS: 36415; 80053; 83690; 83735; 84100; 85014; 85018; 85025; 85610; 86900; 93005; 99291; G0378; J0696; J2354; J2405; J2550; C9113; J2270

== ENCOUNTER 2020-09-04 17:59 | Emergency (ER) | payer MEDICAID ==
[~2020-09-04] VITALS: Ht 182.9 cm; Wt 100.0 kg
--- NOTE | 2020-09-04 18:32 | NUR ---
BREAK RN: THIS IS A 50YO M W/ C/O ABD PAIN AND NAUSEA STARTING TODAY. PT REPORTS WAS ADMITTED TWICE IN THE PAST WEEK FOR HEMTAEMSIS R/T ESOPHAGEAL VARICES. HX OF LIVER FAILURE. PT RESTING ON GURNEY W/ CALL LIGHT IN REACH AND SIDE RAILS UPX2, FAMILY AT BEDSIDE. RESP EVEN AND LABORED, NADN. AWAITING ED EVAL. REPORT GIVEN TO JODIE SANCHEZ.
[2020-09-04] MEDS ORDERED: MORPHINE SULFATE 4 MG/ML, 1ML ONE (19:53)
[2020-09-04] MEDS ORDERED: ONDANSETRON 2MG/ML, 2ML ONE (19:53)
[2020-09-04] MEDS ORDERED: MORPHINE SULFATE 4 MG/ML, 1ML IVPush ONE (20:00)
[2020-09-04] MEDS ORDERED: ONDANSETRON 2MG/ML, 2ML IVPush ONE (20:00)
[2020-09-04 20:27] LABS: BASOPHILS % (AUTO) 1 % (0-1); EOSINOPHILS % (AUTO) 3 % (1-7); LYMPHOCYTES % (AUTO) 8 % (22-44); MEAN CORPUSCULAR HEMOGLOBIN 38.3 pg (27.5-34.5); MEAN PLATELET VOLUME 6.9 fL (7.4-10.4); MONOCYTES % (AUTO) 7 % (2-9); NEUTROPHILS % (AUTO) 81 % (42-75); PLATELET COUNT 96 x10^3/uL (130-400); RED BLOOD COUNT 2.63 x10^6/uL (4.38-5.82); RED CELL DISTRIBUTION WIDTH 14.5 % (9.4-14.8)
[2020-09-04 20:29] LABS: MD NO
[2020-09-04 20:40] LABS: ALANINE AMINOTRANSFERASE 42 U/L (12-78); ALBUMIN 2.8 g/dL (3.4-5.0); ANION GAP 8 mmol/L (5-15); CALCIUM 8.6 mg/dL (8.5-10.1); CHLORIDE 99 mmol/L (98-107); CREATININE 1.14 mg/dL (0.7-1.3)
[2020-09-04 20:42] LABS: ALKALINE PHOSPHATASE 103 U/L (45-117); BILIRUBIN,TOTAL 8.2 mg/dL (0.2-1.0); TOTAL PROTEIN 6.3 g/dL (6.4-8.2)
--- NOTE | 2020-09-04 21:06 | NUR ---
Patient to CT.
[2020-09-04] MEDS ORDERED: OMNIPAQUE 350 MG/ML, 100ML BOTTLE ONE (21:14)
--- NOTE | 2020-09-04 21:25 | NUR ---
REPORT GIVEN TO DANIEL FLOOD.
--- NOTE | 2020-09-04 21:32 | NUR ---
RECEIVED REPORT FROM DANIEL FELICIANO. PT. RESTING ON GURNEY WITH NO APPARENT DISTRESS. SAFETY MEASURES OBSERVED. AWAITING CT READ.
--- NOTE | 2020-09-04 22:21 | NUR ---
DR. JOHNSON AND [facility] RESIDENT AWARE OF B/P. NO NEW ORDERS AT THIS TIME. PT. TO REAMIN NPO UNTIL PROVIER RECHECK.
--- NOTE | 2020-09-04 22:28 | NUR ---
DR. JOHNSON IN TO DISCUSS ED FINDINGS AND POC WITH PT.
--- NOTE | 2020-09-04 22:43 | NUR ---
PT. AMBULATORY ACROSS PRADO TO BR WITH STEADY GAIT.
[2020-09-05 00:39] VITALS: BP 92/45
== END 2020-09-05 00:42 | disposition home or self-care (01) ==
LOC: ED 18:29
DX: K74.60 Unspecified cirrhosis of liver (principal); D64.9 Anemia, unspecified; R11.2 Nausea with vomiting, unspecified; R10.13 Epigastric pain; R10.11 Right upper quadrant pain
CPT/HCPCS: 36415; 74160; 80053; 83690; 85025; 96374; 96375; 99285; J2270; J2405; Q9967

== ENCOUNTER 2021-03-11 09:59 | Emergency (ER) | payer MEDICAID ==
[~2021-03-11] VITALS: Ht 185.4 cm; Wt 112.5 kg
--- NOTE | 2021-03-11 10:54 | NUR ---
PATIENT ROOM FROM [facility]
--- NOTE | 2021-03-11 10:59 | NUR ---
PT BIB SPOUSE VIA POV. PER PT HE IS IN LIVER FAILURE AND HAS HAD BLOOD IN HIS STOOL SINCE LAST NIGHT. PT STATES IT IS BRIGHT RED BLOOD. PT ALSO STATES HE HAS BILAT UPPER ABD QUAD PAIN, BUT STATES THAT IS NORMAL FOR HIM. PT REPORTS NO NEW PAIN. PT RESTING IN [facility], MONITORING IN PLACE, NADN AT THIS TIME, WCTM.
[2021-03-11] MEDS ORDERED: SODIUM CHLORIDE FLUSH 10ML SYR IVF ONE (12:00)
[2021-03-11] MEDS ORDERED: SODIUM CHLORIDE 0.9% 1,000ML IVBOLUS ONE (12:00)
[2021-03-11 12:11] LABS: BASOPHILS % (AUTO) 1 % (0-1); EOSINOPHILS % (AUTO) 16 % (1-7); LYMPHOCYTES % (AUTO) 20 % (22-44); MEAN CORPUSCULAR HGB CONC 34.8 g/dL (33.2-36.2); MEAN PLATELET VOLUME 6.8 fL (7.4-10.4); MONOCYTES % (AUTO) 10 % (2-9); NEUTROPHILS % (AUTO) 54 % (42-75); PLATELET COUNT 79 x10^3/uL (130-400); RED BLOOD COUNT 2.67 x10^6/uL (4.38-5.82); RED CELL DISTRIBUTION WIDTH 16.3 % (9.4-14.8)
[2021-03-11 12:21] LABS: ALANINE AMINOTRANSFERASE 26 U/L (12-78); ALBUMIN 2.1 g/dL (3.4-5.0); ANION GAP 7 mmol/L (5-15); CALCIUM 8.4 mg/dL (8.5-10.1); CHLORIDE 105 mmol/L (98-107)
[2021-03-11 12:22] LABS: ALKALINE PHOSPHATASE 143 U/L (45-117); BILIRUBIN,TOTAL 10.2 mg/dL (0.2-1.0); TOTAL PROTEIN 6.2 g/dL (6.4-8.2)
[2021-03-11 12:25] LABS: INTERNATIONAL NORMALIZED RATIO 2.04 (0.93-1.1); PROTHROMBIN TIME 21.1 Seconds (9.6-11.5)
[2021-03-11 13:53] VITALS: BP 122/81
== END 2021-03-11 14:01 | disposition home or self-care (01) ==
LOC: ED 10:08
DX: K70.30 Alcoholic cirrhosis of liver without ascites (principal); E86.0 Dehydration; E80.6 Other disorders of bilirubin metabolism; Z86.73 Personal history of transient ischemic attack (TIA), and cerebral infarction without residual deficits
CPT/HCPCS: 36415; 80053; 83605; 85025; 85610; 85730; 86850; 86900; 99283; J7030